=== PATIENT | female | born 1965 | race African-American/Black ===

== ENCOUNTER 2016-09-28 19:35 | Emergency (ER) | payer MEDICAID ==
[~2016-09-28] VITALS: Ht 154.9 cm; Wt 49.0 kg
[~2016-09-28 19:35] MED LIST: ALPR2TAB2 PO; CARB200T6 PO; CYCL5TAB PO; GABA-533 PO; GUAI-735 PO; METR375C3 PO; PHEN30TA42 PO; PRED1TAB PO; SERT25TA PO; TRAZ-129 PO
[2016-09-28] MEDS ORDERED: KETOROLAC 60MG/2ML VIAL IM ONE (22:30)
[2016-09-28 23:00] LABS: DIFFERENTIAL COMMENT 1; HEMATOCRIT. 38.4 % (36.0-48.0); HEMOGLOBIN. 13.5 g/dL (12.0-16.0); MEAN CORPUSCULAR HEMOGLOBIN 30.3 pg (28.0-32.0); MEAN CORPUSCULAR HGB CONC 35.2 g/dL (31.0-37.0); MEAN PLATELET VOLUME 7.1 fl (7.4-10.4); PLATELET 305 x1000/uL (130-400); RED BLOOD CELL COUNT 4.47 mill/uL (4.2-5.4); RED CELL DISTRIBUTION WIDTH 13.8 % (11.6-14.6); WHITE BLOOD COUNT 10.3 x1000/uL (4.5-11.0)
[2016-09-28 23:08] LABS: INR 1.1; PROTHROMBIN TIME 11.1 sec
[2016-09-28 23:14] LABS: ALANINE AMINOTRANSFERASE 17 IU/L (13-61); ALBUMIN 3.3 g/dL (3.4-5.0); ANION GAP 7; CALCIUM 8.6 mg/dL (8.5-10.1); CARBON DIOXIDE 27 mEq/L (21-32); CHLORIDE 103 mEq/L (98-107); INDEX HEMOLYSI 1 (1-3); INDEX ICTERIC 1 (1-4); INDEX LIPEMIC 1 (1-3); LIPASE 79 IU/L (73-393); UREA NITROGEN BLOOD 10 mg/dL (7-21); eGFR > 60 mL/min (>60)
[2016-09-29] MEDS ORDERED: ALBUTEROL (0.083%) 2.5MG/3ML NEB HHN ONE
[2016-09-29] MEDS ORDERED: PREDNISONE 20MG TABLET PO ONE (00:15)
[2016-09-29 03:22] VITALS: BP 111/65
[2016-09-29 05:24] LABS: PLATELET ESTIMATE NORMAL
== END 2016-09-29 04:28 | disposition home or self-care (01) ==
LOC: ER 19:36
DX: N12 Tubulo-interstitial nephritis, not specified as acute or chronic (principal); J44.9 Chronic obstructive pulmonary disease, unspecified; Z86.73 Personal history of transient ischemic attack (TIA), and cerebral infarction without residual deficits; F17.200 Nicotine dependence, unspecified, uncomplicated
CPT/HCPCS: 36415; 74176; 80053; 83690; 85025; 85610; 94644; 96372; 99285; J1885; J7512; J7611; Z7610; 80305; 81003

== ENCOUNTER 2017-01-01 18:42 | Emergency (ER) | payer MEDICAID | END 2017-01-01 20:14 | disposition left against medical advice (07) | LOC: ER 20:14 | DX: R06.02 Shortness of breath (principal); Z53.21 Procedure and treatment not carried out due to patient leaving prior to being seen by health care provider ==

== ENCOUNTER 2017-01-28 09:37 | Emergency (ER) | payer MEDICAID ==
[~2017-01-28] VITALS: Ht 154.9 cm; Wt 52.0 kg
[2017-01-28] MEDS ORDERED: KETOROLAC 60MG/2ML VIAL IM ONE (11:45)
[2017-01-28] MEDS ORDERED: DIAZEPAM 2 MG TABLET PO ONE ×2 (11:45→14:45)
[2017-01-28 13:25] LABS: BASOPHILS % 1.8 % (0.0-2.0); EOSINOPHILS % 6.1 % (0.0-5.0); HEMATOCRIT. 40.4 % (36.0-48.0); HEMOGLOBIN. 14.2 g/dL (12.0-16.0); LYMPHOCYTES % 24.7 % (20.0-50.0); MEAN CORPUSCULAR HEMOGLOBIN 30.2 pg (28.0-32.0); MEAN CORPUSCULAR VOLUME 86.2 fL (81.0-99.0); MEAN PLATELET VOLUME 7.6 fl (7.4-10.4); MONOCYTES % 6.7 % (2.0-8.0); NEUTROPHILS % 60.7 % (40.0-76.0); PLATELET 299 x1000/uL (130-400); RED BLOOD CELL COUNT 4.69 mill/uL (4.2-5.4); RED CELL DISTRIBUTION WIDTH 14.2 % (11.6-14.6)
[2017-01-28 13:37] LABS: CARBON DIOXIDE 25 mEq/L (21-32); CHLORIDE 107 mEq/L (98-107)
[2017-01-28 13:58] LABS: CLARITY URINE CLEAR (CLEAR); COLOR URINE DARK YELLOW (YELLOW); GLUCOSE URINE NEGATIVE (NEGATIVE); KETONES URINE TRACE (NEGATIVE); LEUKOCYTE ESTERASE URINE NEGATIVE (NEGATIVE); NITRITE URINE NEGATIVE (NEGATIVE); OCCULT BLOOD URINE NEGATIVE (NEGATIVE); PROTEIN URINE TRACE (NEGATIVE); SPECIFIC GRAVITY URINE 1.033 (1.005-1.030)
[2017-01-28 14:21] LABS: *AMPHETAMINES SCREEN URINE NEGATIVE (NEGATIVE); *BARBITURATES SCREEN URINE NEGATIVE (NEGATIVE); *BENZODIAZEPINES SCREEN URINE NEGATIVE (NEGATIVE); *COCAINE SCREEN URINE PRESUMTIVE POSITIVE (NEGATIVE); CANNABINOID URINE SCREEN PRESUMTIVE POSITIVE (NEGATIVE); METHADONE URINE SCREEN NEGATIVE (NEGATIVE); OPIATES URINE SCREEN NEGATIVE (NEGATIVE); PHENCYCLIDINE URINE SCREEN NEGATIVE (NEGATIVE)
[2017-01-28 16:48] VITALS: BP 123/86
== END 2017-01-28 16:40 | disposition left against medical advice (07) ==
LOC: ER 09:37
DX: M54.5 Low back pain (principal); G89.29 Other chronic pain; F17.210 Nicotine dependence, cigarettes, uncomplicated; R56.9 Unspecified convulsions; F12.20 Cannabis dependence, uncomplicated; J44.9 Chronic obstructive pulmonary disease, unspecified; Z71.6 Tobacco abuse counseling; Z86.73 Personal history of transient ischemic attack (TIA), and cerebral infarction without residual deficits
CPT/HCPCS: 36415; 80048; 80305; 81001; 85025; 96372; 99284; 99406; J1885; Z7610

== ENCOUNTER 2017-03-04 16:44 | Emergency (ER) | payer MEDICAID ==
[~2017-03-04] VITALS: Ht 157.5 cm; Wt 53.0 kg
[2017-03-04] MEDS ORDERED: IPRATROPIUM BROMIDE (0.02%) 0.5MG/2.5ML NEB HHN STA (17:55)
[2017-03-04] MEDS ORDERED: SODIUM CHLORIDE 0.9% 1,000 ML IV ONE (17:55)
[2017-03-04] MEDS ORDERED: ALBUTEROL (0.083%) 2.5MG/3ML NEB HHN STA (17:55)
[2017-03-04] MEDS ORDERED: METHYLPREDNISOLONE SOD SUCC 125 MG/2 ML VIAL IV STA (17:55)
[2017-03-04 18:37] LABS: BASOPHILS % 0.9 % (0.0-2.0); EOSINOPHILS % 6.3 % (0.0-5.0); HEMATOCRIT. 38.3 % (36.0-48.0); HEMOGLOBIN. 13.4 g/dL (12.0-16.0); LYMPHOCYTES % 37.6 % (20.0-50.0); MEAN CORPUSCULAR HEMOGLOBIN 29.9 pg (28.0-32.0); MEAN CORPUSCULAR VOLUME 85.6 fL (81.0-99.0); MEAN PLATELET VOLUME 7.5 fl (7.4-10.4); MONOCYTES % 10.6 % (2.0-8.0); NEUTROPHILS % 44.6 % (40.0-76.0); PLATELET 303 x1000/uL (130-400); RED BLOOD CELL COUNT 4.47 mill/uL (4.2-5.4); RED CELL DISTRIBUTION WIDTH 14.4 % (11.6-14.6)
[2017-03-04 18:38] LABS: CLARITY URINE TURBID (CLEAR); COLOR URINE YELLOW (YELLOW); GLUCOSE URINE NEGATIVE (NEGATIVE); KETONES URINE NEGATIVE (NEGATIVE); LEUKOCYTE ESTERASE URINE TRACE (NEGATIVE); NITRITE URINE NEGATIVE (NEGATIVE); OCCULT BLOOD URINE TRACE (NEGATIVE); PH URINE >=9.0 (4.5-8.0); PROTEIN URINE NEGATIVE (NEGATIVE); SPECIFIC GRAVITY URINE 1.024 (1.005-1.030)
[2017-03-04 18:41] LABS: PROTHROMBIN TIME 10.7 sec (9.4-11.6)
[2017-03-04 18:42] LABS: CARBON DIOXIDE 29 mEq/L (21-32); CHLORIDE 109 mEq/L (98-107)
[2017-03-04 18:48] LABS: *AMPHETAMINES SCREEN URINE NEGATIVE (NEGATIVE); *BARBITURATES SCREEN URINE NEGATIVE (NEGATIVE); *BENZODIAZEPINES SCREEN URINE NEGATIVE (NEGATIVE); *COCAINE SCREEN URINE PRESUMTIVE POSITIVE (NEGATIVE); CANNABINOID URINE SCREEN PRESUMTIVE POSITIVE (NEGATIVE); METHADONE URINE SCREEN NEGATIVE (NEGATIVE); OPIATES URINE SCREEN NEGATIVE (NEGATIVE); PHENCYCLIDINE URINE SCREEN NEGATIVE (NEGATIVE)
[2017-03-04 18:49] LABS: TROPONIN I < 0.02 ng/mL (0.00-0.04)
[2017-03-04 18:50] LABS: HCG SCREEN NEGATIVE
[2017-03-04 20:11] VITALS: BP 120/73
== END 2017-03-04 20:12 | disposition home or self-care (01) ==
LOC: ER 16:44 → CANBEDREQ 20:18
DX: F14.10 Cocaine abuse, uncomplicated (principal); J44.9 Chronic obstructive pulmonary disease, unspecified; F17.210 Nicotine dependence, cigarettes, uncomplicated; R56.9 Unspecified convulsions; Z86.73 Personal history of transient ischemic attack (TIA), and cerebral infarction without residual deficits
CPT/HCPCS: 36415; 71010; 80053; 80305; 81001; 82962; 83605; 83690; 83880; 84484; 84703; 85025; 85610; 87040; 93005; 94640; 96361; 96374; 99285; 99406; J2930; J7030; J7611; Z7610

== ENCOUNTER 2017-03-12 05:34 | Inpatient (IN) | payer MEDICAID ==
[~2017-03-12] VITALS: Ht 157.5 cm; Wt 52.4 kg
[~2017-03-12 05:34] MED LIST changes: -METR375C3 PO; +METR375C6 PO
[2017-03-12] MEDS ORDERED: SODIUM CHLORIDE 0.9% 1,000 ML IV ONE (06:19)
[2017-03-12] MEDS ORDERED: PREDNISONE 20MG TABLET PO STA (06:19)
[2017-03-12] MEDS ORDERED: IPRATROPIUM/ALBUTEROL 0.5-3(2.5)MG/3ML NEB HHN ONE (06:30)
[2017-03-12 06:57] LABS: BASOPHILS % 0.5 % (0.0-2.0); EOSINOPHILS % 3.9 % (0.0-5.0); HEMATOCRIT. 37.2 % (36.0-48.0); HEMOGLOBIN. 12.9 g/dL (12.0-16.0); LYMPHOCYTES % 16.2 % (20.0-50.0); MEAN CORPUSCULAR HEMOGLOBIN 29.8 pg (28.0-32.0); MEAN CORPUSCULAR VOLUME 85.8 fL (81.0-99.0); MEAN PLATELET VOLUME 7.4 fl (7.4-10.4); MONOCYTES % 8.8 % (2.0-8.0); NEUTROPHILS % 70.6 % (40.0-76.0); PLATELET 302 x1000/uL (130-400); RED BLOOD CELL COUNT 4.34 mill/uL (4.2-5.4); RED CELL DISTRIBUTION WIDTH 14.3 % (11.6-14.6)
[2017-03-12 06:59] LABS: D-DIMER 0.27 mg/L FEU (<0.50); PARTIAL THROMBOPLASTIN TIME 34.1 sec (23.4-31.0); PROTHROMBIN TIME 9.9 sec (9.4-11.6)
[2017-03-12 07:04] LABS: CARBON DIOXIDE 24 mEq/L (21-32); CHLORIDE 108 mEq/L (98-107); TROPONIN I < 0.02 ng/mL (0.00-0.04)
[2017-03-12 07:59] LABS: BG BASE EXCESS 1.6 mmol/L (-2.0-2.0); BG CARBOXYHEMOGLOBIN 1.8 % (0.5-1.5); BG DEOXYHEMOGLOBIN 8.3 % (0.0-5.0); BG FRACTION INSPIRED OXYGEN 21; BG HCO3 ACT 25.7 mmol/L (22.0-26.0); BG METHEMOGLOBIN 0.2 % (0.0-1.5); BG OXYGEN SATURATION 91.5 % (92.0-98.5); BG OXYHEMOGLOBIN 89.7 % (94.0-97.0); BG PCO2 38.8 mmHg (35.0-45.0); BG PH 7.439 (7.350-7.450); BG PO2 59.7 mmHg (75.0-100.0); BG SAMPLE SITE RIGHT BRACHIAL; BG TOTAL HEMOGLOBIN 14.1 g/dL (12.0-18.0); BG VENT MODE ROOM AIR
[2017-03-12 08:59] LABS: CLARITY URINE CLEAR (CLEAR); COLOR URINE YELLOW (YELLOW); GLUCOSE URINE NEGATIVE (NEGATIVE); KETONES URINE NEGATIVE (NEGATIVE); LEUKOCYTE ESTERASE URINE TRACE (NEGATIVE); NITRITE URINE NEGATIVE (NEGATIVE); OCCULT BLOOD URINE NEGATIVE (NEGATIVE); PROTEIN URINE NEGATIVE (NEGATIVE); SPECIFIC GRAVITY URINE 1.028 (1.005-1.030)
[2017-03-12] MEDS ORDERED: SODIUM CHLORIDE 0.9% 1,000 ML IV SCH (11:14)
[2017-03-12] MEDS ORDERED: CEFTRIAXONE 1 G PREMIX 50 ML IV ONE (11:15)
[2017-03-12 11:34] LABS: *AMPHETAMINES SCREEN URINE NEGATIVE (NEGATIVE); *BARBITURATES SCREEN URINE NEGATIVE (NEGATIVE); *BENZODIAZEPINES SCREEN URINE NEGATIVE (NEGATIVE); *COCAINE SCREEN URINE PRESUMTIVE POSITIVE (NEGATIVE); CANNABINOID URINE SCREEN PRESUMTIVE POSITIVE (NEGATIVE); METHADONE URINE SCREEN NEGATIVE (NEGATIVE); OPIATES URINE SCREEN NEGATIVE (NEGATIVE); PHENCYCLIDINE URINE SCREEN NEGATIVE (NEGATIVE)
[2017-03-12 12:00] VITALS: BP 115/82
[2017-03-12 12:36] VITALS: BP 118/85
[2017-03-12] MEDS ORDERED: MAGNESIUM/ALUMINUM HYDROXIDE/SIMETHICONE 30ML UDC PO PRN ×2 (13:15→18:15)
[2017-03-12] MEDS ORDERED: CLONIDINE 0.1MG TABLET PO PRN (13:15)
[2017-03-12] MEDS ORDERED: ONDANSETRON HCL 4MG/2ML VIAL IV PRN (13:15)
[2017-03-12] MEDS ORDERED: IPRATROPIUM/ALBUTEROL 0.5-3(2.5)MG/3ML NEB INH PRN (13:15)
[2017-03-12] MEDS ORDERED: GUAIFENESIN 200MG/10ML SUGAR FREE UDC PO PRN (13:15)
[2017-03-12] MEDS: ENOXAPARIN 40MG/0.4ML SYR SUBCUT SCH (13:15)
[2017-03-12] MEDS: SODIUM CHLORIDE 0.9% INJ 3ML FLUSH IVF SCH ×2 (15:00→21:35)
[2017-03-12] MEDS: IPRATROPIUM/ALBUTEROL 0.5-3(2.5)MG/3ML NEB HHN SCH ×3 (15:28→22:14)
[2017-03-12 16:00] VITALS: BP 124/67
[2017-03-12] MEDS: ACETAMINOPHEN 325MG TABLET PO PRN (17:01)
[2017-03-12] MEDS ORDERED: HYDR-519 PO (17:07)
[2017-03-12 20:00] VITALS: BP 128/74
[2017-03-12] MEDS: GUAIFENESIN 600MG ER TABLET PO SCH (21:30)
[2017-03-12] MEDS: METHYLPREDNISOLONE SOD SUCC 125 MG/2 ML VIAL IV SCH (21:30)
[2017-03-12] MEDS ORDERED: ZOLPIDEM TARTRATE 5MG TABLET PO PRN (22:00)
[2017-03-13] VITALS: BP 108/62
[2017-03-13] MEDS: IPRATROPIUM/ALBUTEROL 0.5-3(2.5)MG/3ML NEB HHN SCH ×2 (01:41→09:52)
[2017-03-13 04:00] VITALS: BP 120/71
[2017-03-13] MEDS: METHYLPREDNISOLONE SOD SUCC 125 MG/2 ML VIAL IV SCH (06:12)
[2017-03-13] MEDS: SODIUM CHLORIDE 0.9% INJ 3ML FLUSH IVF SCH (06:12)
[2017-03-13 08:00] VITALS: BP 111/62
[2017-03-13] MEDS: GUAIFENESIN 600MG ER TABLET PO SCH (08:04)
[2017-03-13] MEDS: ENOXAPARIN 40MG/0.4ML SYR SUBCUT SCH (08:05)
[2017-03-13] MEDS: ACETAMINOPHEN 325MG TABLET PO PRN (08:49)
[2017-03-13] MEDS ORDERED: AZITHROMYCIN 500 MG TABLET PO SCH (09:00)
== END 2017-03-13 11:30 | disposition left against medical advice (07) | DRG 140 ==
LOC: ER 08:26 → ENRESERV 10:13 → 5WST 11:17 → EDBEDREQ 11:18 → EDBEDREQTM 11:18
PROVIDERS: ADMIT Internal Medicine; ATTEND Internal Medicine
DX: J44.1 Chronic obstructive pulmonary disease with (acute) exacerbation (principal); J96.90 Respiratory failure, unspecified, unspecified whether with hypoxia or hypercapnia; J44.0 Chronic obstructive pulmonary disease with (acute) lower respiratory infection; E44.0 Moderate protein-calorie malnutrition; I10 Essential (primary) hypertension; F14.10 Cocaine abuse, uncomplicated; G40.909 Epilepsy, unspecified, not intractable, without status epilepticus; J20.9 Acute bronchitis, unspecified; Z86.73 Personal history of transient ischemic attack (TIA), and cerebral infarction without residual deficits; Z87.11 Personal history of peptic ulcer disease; Z87.891 Personal history of nicotine dependence; Z98.891 History of uterine scar from previous surgery; Z79.899 Other long term (current) drug therapy; Z68.21 Body mass index [BMI] 21.0-21.9, adult; Z82.49 Family history of ischemic heart disease and other diseases of the circulatory system
CPT/HCPCS: 36415; 36600; 71010; 80053; 80305; 81001; 82375; 82805; 83880; 84484; 85025; 85379; 85610; 85730; 87040; 87086; 93005; 94640; 94664; 99285; J0696; J1650; J2930; J7030; J7512; J7620

== ENCOUNTER 2017-05-15 20:14 | Emergency (ER) | payer MEDICAID ==
[~2017-05-15] VITALS: Ht 154.9 cm; Wt 47.0 kg
[~2017-05-15 20:14] MED LIST changes: +HYDR-519 PO
[2017-05-15 20:26] VITALS: BP 125/78
[2017-05-15] MEDS ORDERED: BACITRACIN ZINC OINT UDPKT TOP ONE (21:30)
[2017-05-15] MEDS ORDERED: KETOROLAC 30MG/ML VIAL IM ONE (21:30)
[2017-05-15] MEDS ORDERED: LIDOCAINE HCL 1% 20ML VIAL (Pyxis) INJ MC ONE (21:30)
== END 2017-05-15 23:58 | disposition home or self-care (01) ==
LOC: ER 22:50
DX: L02.512 Cutaneous abscess of left hand (principal); J44.9 Chronic obstructive pulmonary disease, unspecified; R56.9 Unspecified convulsions; F17.200 Nicotine dependence, unspecified, uncomplicated; F12.10 Cannabis abuse, uncomplicated; Z98.890 Other specified postprocedural states
CPT/HCPCS: 10060; 81025; 96372; 99283; J1885; J3490

== ENCOUNTER 2017-08-02 07:52 | Emergency (ER) | payer MEDICAID ==
[~2017-08-02] VITALS: Ht 154.9 cm; Wt 51.0 kg
[2017-08-02 08:00] VITALS: BP 138/76
[2017-08-02 08:20] LABS: CLARITY URINE CLEAR (CLEAR); COLOR URINE YELLOW (YELLOW); KETONES URINE NEGATIVE (NEGATIVE); LEUKOCYTE ESTERASE URINE NEGATIVE (NEGATIVE); NITRITE URINE NEGATIVE (NEGATIVE); OCCULT BLOOD URINE NEGATIVE (NEGATIVE); PH URINE >=9.0 (4.5-8.0); PROTEIN URINE NEGATIVE (NEGATIVE); SPECIFIC GRAVITY URINE 1.007 (1.005-1.030)
== END 2017-08-02 10:47 | disposition left against medical advice (07) ==
LOC: ER 08:33
DX: R10.2 Pelvic and perineal pain (principal); Z53.21 Procedure and treatment not carried out due to patient leaving prior to being seen by health care provider
CPT/HCPCS: 81003; 81025

== ENCOUNTER 2017-11-30 04:29 | Emergency (ER) | payer MEDICAID ==
[~2017-11-30] VITALS: Ht 157.5 cm; Wt 45.0 kg
[2017-11-30 04:41] VITALS: BP 152/90
== END 2017-11-30 05:00 | disposition left against medical advice (07) ==
LOC: ER 04:29
DX: Z53.21 Procedure and treatment not carried out due to patient leaving prior to being seen by health care provider (principal)

== ENCOUNTER 2018-06-10 11:48 | Emergency (ER) | payer MEDICAID ==
[~2018-06-10] VITALS: Ht 165.1 cm; Wt 59.0 kg
[~2018-06-10 11:48] MED LIST changes: -TRAZ-129 PO; +TRAZ-212 PO
[2018-06-10] MEDS ORDERED: KETOROLAC 30MG/ML VIAL IV STA (12:14)
[2018-06-10] MEDS ORDERED: SODIUM CHLORIDE 0.9% 1,000 ML IV ONE (12:14)
[2018-06-10 13:36] LABS: COLOR URINE YELLOW (YELLOW); KETONES URINE TRACE (NEGATIVE); LEUKOCYTE ESTERASE URINE NEGATIVE (NEGATIVE); NITRITE URINE POSITIVE (NEGATIVE); OCCULT BLOOD URINE NEGATIVE (NEGATIVE); PH URINE 6.5 (4.5-8.0); PROTEIN URINE NEGATIVE (NEGATIVE); SPECIFIC GRAVITY URINE 1.028 (1.005-1.030)
[2018-06-10 13:37] LABS: CLARITY URINE SL HAZY (CLEAR)
[2018-06-10 13:39] LABS: BASOPHILS % 0.7 % (0.0-2.0); EOSINOPHILS % 3.2 % (0.0-5.0); HEMATOCRIT. 41.1 % (36.0-48.0); HEMOGLOBIN. 14.6 g/dL (12.0-16.0); LYMPHOCYTES % 24.5 % (20.0-50.0); MEAN CORPUSCULAR VOLUME 87.4 fL (81.0-99.0); MEAN PLATELET VOLUME 7.5 fl (7.4-10.4); MONOCYTES % 7.1 % (2.0-8.0); NEUTROPHILS % 64.5 % (40.0-76.0); PLATELET 288 x1000/uL (130-400); RED BLOOD CELL COUNT 4.71 mill/uL (4.2-5.4); RED CELL DISTRIBUTION WIDTH 14.8 % (11.6-14.6)
[2018-06-10 13:45] LABS: CHLORIDE 109 mEq/L (98-107)
[2018-06-10 13:47] LABS: PARTIAL THROMBOPLASTIN TIME 33.4 sec (23.4-31.0)
[2018-06-10 13:49] LABS: ETHANOL BLOOD < 10 mg/dL
[2018-06-10 13:59] LABS: *AMPHETAMINES SCREEN URINE NEGATIVE (NEGATIVE); *BARBITURATES SCREEN URINE NEGATIVE (NEGATIVE); *BENZODIAZEPINES SCREEN URINE NEGATIVE (NEGATIVE); *COCAINE SCREEN URINE PRESUMTIVE POSITIVE (NEGATIVE); METHADONE URINE SCREEN NEGATIVE (NEGATIVE); OPIATES URINE SCREEN NEGATIVE (NEGATIVE)
[2018-06-10 14:00] LABS: CANNABINOID URINE SCREEN PRESUMTIVE POSITIVE (NEGATIVE); PHENCYCLIDINE URINE SCREEN NEGATIVE (NEGATIVE)
[2018-06-10] MEDS ORDERED: CEFTRIAXONE 1 G PREMIX 50 ML IV ONE (14:00)
[2018-06-10 14:03] LABS: CARBAMAZEPINE < 0.5 ug/mL (4-12); PHENOBARBITAL < 2.1 ug/mL (15.0-40.0)
[2018-06-10] MEDS ORDERED: CARBAMAZEPINE 200MG TABLET PO ONE (14:30)
[2018-06-10 14:49] VITALS: BP 117/63
== END 2018-06-10 15:30 | disposition home or self-care (01) ==
LOC: ER 12:57 → CANBEDREQ 16:51
DX: N30.00 Acute cystitis without hematuria (principal); F12.10 Cannabis abuse, uncomplicated; G40.909 Epilepsy, unspecified, not intractable, without status epilepticus; I10 Essential (primary) hypertension; F14.10 Cocaine abuse, uncomplicated; R94.31 Abnormal electrocardiogram [ECG] [EKG]
CPT/HCPCS: 36415; 71045; 74176; 80053; 80156; 80184; 80305; 81003; 83690; 83880; 84484; 85025; 85610; 85730; 93005; 96365; 96375; 99284; G0482; J0696; J1885; J7030

== ENCOUNTER 2018-12-29 11:47 | Emergency (ER) | payer MEDICAID ==
[~2018-12-29] VITALS: Ht 167.6 cm; Wt 50.0 kg
[~2018-12-29 11:47] MED LIST changes: -TRAZ-212 PO; +TRAZ-251 PO
[2018-12-29] MEDS ORDERED: CARBAMAZEPINE 100MG TABLET CHEW PO ONE (13:15)
[2018-12-29] MEDS ORDERED: SODIUM CHLORIDE 0.9% 1,000 ML IV ONE (13:15)
[2018-12-29 14:26] LABS: BASOPHILS % 0.9 % (0.0-2.0); HEMATOCRIT. 41.2 % (36.0-48.0); HEMOGLOBIN. 14.4 g/dL (12.0-16.0); LYMPHOCYTES % 31.8 % (20.0-50.0); MEAN CORPUSCULAR HEMOGLOBIN 30.3 pg (28.0-32.0); MEAN CORPUSCULAR VOLUME 86.7 fL (81.0-99.0); MEAN PLATELET VOLUME 7.3 fl (7.4-10.4); MONOCYTES % 6.9 % (2.0-8.0); NEUTROPHILS % 56.4 % (40.0-76.0); PLATELET 313 x1000/uL (130-400); RED BLOOD CELL COUNT 4.75 mill/uL (4.2-5.4); RED CELL DISTRIBUTION WIDTH 14.6 % (11.6-14.6)
[2018-12-29 14:30] LABS: CHLORIDE 106 mEq/L (98-107)
[2018-12-29 16:33] LABS: CLARITY URINE CLEAR (CLEAR); COLOR URINE YELLOW (YELLOW); KETONES URINE NEGATIVE (NEGATIVE); LEUKOCYTE ESTERASE URINE NEGATIVE (NEGATIVE); NITRITE URINE NEGATIVE (NEGATIVE); OCCULT BLOOD URINE NEGATIVE (NEGATIVE); PROTEIN URINE NEGATIVE (NEGATIVE); SPECIFIC GRAVITY URINE 1.021 (1.005-1.030)
[2018-12-29 16:47] VITALS: BP 113/55
[2018-12-29 16:54] LABS: *AMPHETAMINES SCREEN URINE NEGATIVE (NEGATIVE); *BARBITURATES SCREEN URINE NEGATIVE (NEGATIVE); *BENZODIAZEPINES SCREEN URINE NEGATIVE (NEGATIVE); *COCAINE SCREEN URINE PRESUMTIVE POSITIVE (NEGATIVE); CANNABINOID URINE SCREEN PRESUMTIVE POSITIVE (NEGATIVE); METHADONE URINE SCREEN NEGATIVE (NEGATIVE); OPIATES URINE SCREEN NEGATIVE (NEGATIVE)
[2018-12-29 16:56] LABS: PHENCYCLIDINE URINE SCREEN NEGATIVE (NEGATIVE)
[2018-12-29] MEDS ORDERED: CARBAMAZEPINE 100MG TABLET CHEW PO SCH (17:00)
== END 2018-12-29 17:19 | disposition home or self-care (01) ==
LOC: ER 12:28
DX: G40.909 Epilepsy, unspecified, not intractable, without status epilepticus (principal); F14.10 Cocaine abuse, uncomplicated; F12.10 Cannabis abuse, uncomplicated; Z91.14 Patient's other noncompliance with medication regimen
CPT/HCPCS: 36415; 80048; 80305; 81003; 81025; 85025; 96360; 99283; J7030; Z7610

== ENCOUNTER 2019-03-23 12:34 | Emergency (ER) | payer MEDICAID ==
[~2019-03-23] VITALS: Ht 162.6 cm; Wt 59.0 kg
[2019-03-23] MEDS ORDERED: ONDANSETRON HCL 4MG/2ML INJ IV STA (14:24)
[2019-03-23] MEDS ORDERED: KETOROLAC 30MG/ML VIAL IV STA (14:24)
[2019-03-23] MEDS ORDERED: SODIUM CHLORIDE 0.9% 1,000 ML IV ONE (14:24)
[2019-03-23 15:11] LABS: EOSINOPHILS % 2.9 % (0.0-5.0); HEMATOCRIT. 42.2 % (36.0-48.0); HEMOGLOBIN. 14.7 g/dL (12.0-16.0); LYMPHOCYTES % 19.7 % (20.0-50.0); MEAN PLATELET VOLUME 7.4 fl (7.4-10.4); MONOCYTES % 4.8 % (2.0-8.0); NEUTROPHILS % 71.6 % (40.0-76.0); PLATELET 295 x1000/uL (130-400); RED BLOOD CELL COUNT 4.74 mill/uL (4.2-5.4); RED CELL DISTRIBUTION WIDTH 14.3 % (11.6-14.6)
[2019-03-23 15:13] LABS: CHLORIDE 109 mEq/L (98-107)
[2019-03-23 15:16] LABS: CLARITY URINE CLEAR (CLEAR); COLOR URINE YELLOW (YELLOW); KETONES URINE NEGATIVE (NEGATIVE); LEUKOCYTE ESTERASE URINE TRACE (NEGATIVE); NITRITE URINE POSITIVE (NEGATIVE); OCCULT BLOOD URINE TRACE (NEGATIVE); PROTEIN URINE NEGATIVE (NEGATIVE); SPECIFIC GRAVITY URINE 1.017 (1.005-1.030)
[2019-03-23 15:17] LABS: ETHANOL BLOOD < 10 mg/dL; HCG SCREEN NEGATIVE
[2019-03-23 15:34] LABS: *BARBITURATES SCREEN URINE NEGATIVE (NEGATIVE)
[2019-03-23 15:35] LABS: *AMPHETAMINES SCREEN URINE NEGATIVE (NEGATIVE); *BENZODIAZEPINES SCREEN URINE NEGATIVE (NEGATIVE); *COCAINE SCREEN URINE PRESUMTIVE POSITIVE (NEGATIVE); CANNABINOID URINE SCREEN NEGATIVE (NEGATIVE); METHADONE URINE SCREEN NEGATIVE (NEGATIVE); OPIATES URINE SCREEN NEGATIVE (NEGATIVE); PHENCYCLIDINE URINE SCREEN NEGATIVE (NEGATIVE)
[2019-03-23 16:37] VITALS: BP 148/89
== END 2019-03-23 16:38 | disposition home or self-care (01) ==
LOC: ER 12:34
DX: F14.10 Cocaine abuse, uncomplicated (principal); R00.1 Bradycardia, unspecified; J45.909 Unspecified asthma, uncomplicated; R42 Dizziness and giddiness; R11.2 Nausea with vomiting, unspecified; M54.6 Pain in thoracic spine; F12.10 Cannabis abuse, uncomplicated; F17.200 Nicotine dependence, unspecified, uncomplicated; Z98.890 Other specified postprocedural states; Z79.899 Other long term (current) drug therapy
CPT/HCPCS: 36415; 71045; 80053; 80305; 80320; 81003; 81025; 83690; 84484; 84703; 85025; 85610; 93005; 96361; 96374; 96375; 99284; J1885; J2405; J7030; G0480

== ENCOUNTER 2019-06-23 22:37 | Emergency (ER) | payer MEDICAID ==
[~2019-06-23] VITALS: Ht 154.9 cm; Wt 48.0 kg
[2019-06-24] MEDS ORDERED: KETOROLAC 60MG/2ML VIAL IM STA (02:13)
[2019-06-24] MEDS ORDERED: AZITHROMYCIN 500 MG TABLET PO ONE (02:15)
[2019-06-24] MEDS ORDERED: LIDOCAINE HCL/PF 1% 10 MG/ML 5ML VIAL IJ ONE (02:15)
[2019-06-24] MEDS ORDERED: CEFTRIAXONE SODIUM 250 MG/VIAL IM ONE (02:15)
[2019-06-24 02:31] LABS: CLARITY URINE CLEAR (CLEAR); COLOR URINE YELLOW (YELLOW); KETONES URINE NEGATIVE (NEGATIVE); LEUKOCYTE ESTERASE URINE NEGATIVE (NEGATIVE); NITRITE URINE NEGATIVE (NEGATIVE); OCCULT BLOOD URINE NEGATIVE (NEGATIVE); PROTEIN URINE NEGATIVE (NEGATIVE); SPECIFIC GRAVITY URINE 1.023 (1.005-1.030); UROBILINOGEN URINE 0.2 E.U./dL (0.2-1.0)
[2019-06-24 03:05] VITALS: BP 131/74
== END 2019-06-24 03:20 | disposition home or self-care (01) ==
LOC: ER 22:37
DX: M54.42 Lumbago with sciatica, left side (principal); Z20.2 Contact with and (suspected) exposure to infections with a predominantly sexual mode of transmission; G40.909 Epilepsy, unspecified, not intractable, without status epilepticus; J44.9 Chronic obstructive pulmonary disease, unspecified; F14.10 Cocaine abuse, uncomplicated; F17.210 Nicotine dependence, cigarettes, uncomplicated; F12.10 Cannabis abuse, uncomplicated; Z98.890 Other specified postprocedural states
CPT/HCPCS: 81003; 81025; 96372; 99283; J0696; J1885; J3490

== ENCOUNTER 2019-12-27 22:54 | Emergency (ER) | payer MEDICAID ==
[~2019-12-27] VITALS: Ht 152.4 cm; Wt 55.0 kg
[2019-12-28 00:20] LABS: BASOPHILS % 0.9 % (0.0-2.0); EOSINOPHILS % 2.8 % (0.0-5.0); HEMATOCRIT. 41.3 % (36.0-48.0); HEMOGLOBIN. 14.6 g/dL (12.0-16.0); MEAN CORPUSCULAR HEMOGLOBIN 30.9 pg (28.0-32.0); MEAN CORPUSCULAR VOLUME 87.3 fL (81.0-99.0); MEAN PLATELET VOLUME 7.4 fl (7.4-10.4); MONOCYTES % 6.3 % (2.0-8.0); PLATELET 308 x1000/uL (130-400); RED BLOOD CELL COUNT 4.73 mill/uL (4.2-5.4); RED CELL DISTRIBUTION WIDTH 15.6 % (11.6-14.6)
[2019-12-28 00:21] LABS: CHLORIDE 110 mEq/L (98-107)
[2019-12-28 04:10] VITALS: BP 130/72
== END 2019-12-28 04:38 | disposition home or self-care (01) ==
LOC: ER 22:54
DX: R10.30 Lower abdominal pain, unspecified (principal); R11.2 Nausea with vomiting, unspecified; F14.10 Cocaine abuse, uncomplicated; F12.10 Cannabis abuse, uncomplicated; J44.9 Chronic obstructive pulmonary disease, unspecified; Z98.890 Other specified postprocedural states
CPT/HCPCS: 36415; 80053; 85025; 99283; 99285

== ENCOUNTER 2020-02-08 11:22 | Emergency (ER) | payer MEDICAID ==
[~2020-02-08] VITALS: Ht 165.1 cm; Wt 63.0 kg
[2020-02-08 12:01] LABS: EOSINOPHILS % 4.1 % (0.0-5.0); HEMATOCRIT. 41.9 % (36.0-48.0); HEMOGLOBIN. 14.8 g/dL (12.0-16.0); LYMPHOCYTES % 27.3 % (20.0-50.0); MEAN CORPUSCULAR HEMOGLOBIN 30.3 pg (28.0-32.0); MEAN CORPUSCULAR VOLUME 85.8 fL (81.0-99.0); MEAN PLATELET VOLUME 7.5 fl (7.4-10.4); MONOCYTES % 8.4 % (2.0-8.0); NEUTROPHILS % 59.2 % (40.0-76.0); PLATELET 301 x1000/uL (130-400); RED BLOOD CELL COUNT 4.88 mill/uL (4.2-5.4); RED CELL DISTRIBUTION WIDTH 14.9 % (11.6-14.6)
[2020-02-08 12:07] LABS: CHLORIDE 109 mEq/L (98-107)
[2020-02-08 12:22] LABS: B-HCG QUANTITATIVE < 1 mIU/mL (<3)
[2020-02-08 12:24] LABS: CLARITY URINE CLOUDY (CLEAR); COLOR URINE RED (YELLOW); KETONES URINE NEGATIVE (NEGATIVE); LEUKOCYTE ESTERASE URINE 2+ (NEGATIVE); NITRITE URINE POSITIVE (NEGATIVE); OCCULT BLOOD URINE 3+ (NEGATIVE); PH URINE >=9.0 (4.5-8.0); PROTEIN URINE 3+ (NEGATIVE); SPECIFIC GRAVITY URINE 1.018 (1.005-1.030); UROBILINOGEN URINE 0.2 E.U./dL (0.2-1.0)
[2020-02-08] MEDS ORDERED: CEFTRIAXONE 1 G PREMIX 50 ML IV ONE (13:00)
[2020-02-08] MEDS ORDERED: ONDANSETRON HCL 4MG/2ML INJ IV ONE (13:45)
[2020-02-08 14:45] VITALS: BP 162/83
== END 2020-02-08 14:49 | disposition home or self-care (01) ==
LOC: ER 11:22
DX: D25.9 Leiomyoma of uterus, unspecified (principal); N39.0 Urinary tract infection, site not specified; R11.2 Nausea with vomiting, unspecified; J44.9 Chronic obstructive pulmonary disease, unspecified; Z79.899 Other long term (current) drug therapy; Z98.890 Other specified postprocedural states
CPT/HCPCS: 36415; 76830; 76856; 80053; 81003; 81025; 84702; 85025; 86850; 86900; 86901; 87086; 93005; 96365; 99285; J0696

== ENCOUNTER 2021-07-04 10:58 | Inpatient (IN) | payer MEDICAID ==
[~2021-07-04] VITALS: Ht 162.6 cm; Wt 68.9 kg
[~2021-07-04 10:58] MED LIST changes: +AMLO10TA4 MT; +KEPP500 MT; -METR375C6 PO; +METR375C7 PO; -PHEN30TA42 PO; +PHEN30TA50 PO
[2021-07-04] MEDS ORDERED: ALBUTEROL (0.083%) 2.5MG/3ML NEB HHN STA (12:01)
[2021-07-04] MEDS ORDERED: MORPHINE SULFATE 4 MG/ML CPJ (NOT FOR IM USE) IV STA (12:01)
[2021-07-04] MEDS ORDERED: METHYLPREDNISOLONE SOD SUCC 125 MG/2 ML VIAL IV STA (12:01)
[2021-07-04] MEDS ORDERED: IPRATROPIUM BROMIDE (0.02%) 0.5MG/2.5ML NEB HHN STA (12:01)
[2021-07-04] MEDS ORDERED: CARBAMAZEPINE 100MG TABLET CHEW PO ONE (12:15)
[2021-07-04] MEDS ORDERED: SODIUM CHLORIDE 0.9% 1000ML BAG (SEPSIS BOLUS) IV ONE (12:15)
[2021-07-04 13:23] LABS: HEMATOCRIT. 42.1 % (36.0-48.0); HEMOGLOBIN. 14.5 g/dL (12.0-16.0); MEAN CORPUSCULAR HEMOGLOBIN 29.5 pg (28.0-32.0); MEAN PLATELET VOLUME 7.6 fl (7.4-10.4); PLATELET 290 x1000/uL (130-400); RED CELL DISTRIBUTION WIDTH 14.3 % (11.6-14.6)
[2021-07-04 13:31] LABS: CHLORIDE 110 mEq/L (98-107)
[2021-07-04 13:34] LABS: ETHANOL BLOOD < 10 mg/dL
[2021-07-04 13:39] LABS: HCG SCREEN NEGATIVE
[2021-07-04 13:42] LABS: PLATELET ESTIMATE NORMAL
[2021-07-04] MEDS ORDERED: ACETAMINOPHEN 325MG TABLET PO ONE (14:00)
[2021-07-04 17:04] LABS: CLARITY URINE CLEAR (CLEAR); COLOR URINE YELLOW (YELLOW); KETONES URINE TRACE (NEGATIVE); LEUKOCYTE ESTERASE URINE NEGATIVE (NEGATIVE); NITRITE URINE POSITIVE (NEGATIVE); OCCULT BLOOD URINE NEGATIVE (NEGATIVE); PH URINE 7.5 (4.5-8.0); PROTEIN URINE NEGATIVE (NEGATIVE); SPECIFIC GRAVITY URINE 1.015 (1.005-1.030)
[2021-07-04] MEDS ORDERED: CEFTRIAXONE 1 G PREMIX 50 ML IV ONE (17:15)
[2021-07-04 17:52] LABS: *AMPHETAMINES SCREEN URINE NEGATIVE (NEGATIVE); *BARBITURATES SCREEN URINE NEGATIVE (NEGATIVE); *BENZODIAZEPINES SCREEN URINE NEGATIVE (NEGATIVE); *COCAINE SCREEN URINE PRESUMTIVE POSITIVE (NEGATIVE); CANNABINOID URINE SCREEN PRESUMTIVE POSITIVE (NEGATIVE); PHENCYCLIDINE URINE SCREEN NEGATIVE (NEGATIVE)
[2021-07-04 17:53] LABS: METHADONE URINE SCREEN NEGATIVE (NEGATIVE); OPIATES URINE SCREEN PRESUMTIVE POSITIVE (NEGATIVE)
[2021-07-04] MEDS ORDERED: ALBUTEROL (0.083%) 2.5MG/3ML NEB HHN SCH (20:30)
[2021-07-04] MEDS ORDERED: IPRATROPIUM BROMIDE (0.02%) 0.5MG/2.5ML NEB HHN NR (20:30)
[2021-07-05] VITALS (7 sets, daily range): BP systolic 106–134; BP diastolic 53–72
[2021-07-05] MEDS ORDERED: ALBUTEROL 6.7GM HFA INHALER ORI PRN (01:00)
[2021-07-05] MEDS ORDERED: ACETAMINOPHEN 325MG TABLET PO PRN (01:00)
[2021-07-05] MEDS: GABAPENTIN 300MG CAPSULE PO SCH ×3 (06:54→20:58)
[2021-07-05 07:27] LABS: HEMATOCRIT. 33.4 % (36.0-48.0); HEMOGLOBIN. 11.9 g/dL (12.0-16.0); MEAN CORPUSCULAR HEMOGLOBIN 30.2 pg (28.0-32.0); MEAN CORPUSCULAR VOLUME 84.7 fL (81.0-99.0); MEAN PLATELET VOLUME 7.6 fl (7.4-10.4); PLATELET 241 x1000/uL (130-400); RED BLOOD CELL COUNT 3.94 mill/uL (4.2-5.4); RED CELL DISTRIBUTION WIDTH 14.3 % (11.6-14.6)
[2021-07-05 07:34] LABS: CHLORIDE 115 mEq/L (98-107)
[2021-07-05] MEDS: AZITHROMYCIN 500 MG in DEXT 5% WATER 250 ML IV SCH (08:41)
[2021-07-05] MEDS: PHENOBARBITAL 30 MG TABLET PO SCH (08:42)
[2021-07-05] MEDS: DEXAMETHASONE 4MG/ML 1ML VIAL IV SCH (08:42)
[2021-07-05] MEDS: SERTRALINE HCL 25MG TABLET PO SCH (08:42)
[2021-07-05] MEDS: AMLODIPINE 10MG TABLET PO SCH (08:43)
[2021-07-05] MEDS: LEVETIRACETAM 500MG TABLET PO SCH ×2 (08:43→20:58)
[2021-07-05] MEDS: CEFTRIAXONE 1,000 MG in DEXTROSE 5% WATER 50 ML IV SCH (08:43)
[2021-07-05] MEDS: CARBAMAZEPINE 200MG TABLET PO SCH ×3 (08:44→20:58)
[2021-07-05] MEDS: ENOXAPARIN 40MG/0.4ML SYR SUBCUT SCH (08:45)
[2021-07-05] MEDS ORDERED: CEFTRIAXONE 1 G PREMIX 50 ML IV SCH (09:00)
[2021-07-05 18:45] LABS: PLATELET ESTIMATE NORMAL
[2021-07-05 19:58] LABS: C REACTIVE PROTEIN QUANT 4.7 mg/L (0.0-3.0)
[2021-07-05] MEDS ORDERED: TRAZODONE HCL 50MG TABLET PO SCH (21:00)
[2021-07-06 00:48] VITALS: BP 125/71
[2021-07-06 04:00] VITALS: BP 126/84
[2021-07-06] MEDS: GABAPENTIN 300MG CAPSULE PO SCH ×2 (06:24→14:37)
[2021-07-06] MEDS: CEFTRIAXONE 1,000 MG in DEXTROSE 5% WATER 50 ML IV SCH (09:12)
[2021-07-06] MEDS: AMLODIPINE 10MG TABLET PO SCH (09:13)
[2021-07-06] MEDS: AZITHROMYCIN 500 MG in DEXT 5% WATER 250 ML IV SCH (09:13)
[2021-07-06] MEDS: DEXAMETHASONE 4MG/ML 1ML VIAL IV SCH (09:13)
[2021-07-06] MEDS: ENOXAPARIN 40MG/0.4ML SYR SUBCUT SCH (09:13)
[2021-07-06] MEDS: PHENOBARBITAL 30 MG TABLET PO SCH (09:14)
[2021-07-06] MEDS: CARBAMAZEPINE 200MG TABLET PO SCH (09:14)
[2021-07-06] MEDS: LEVETIRACETAM 500MG TABLET PO SCH (09:14)
[2021-07-06] MEDS: SERTRALINE HCL 25MG TABLET PO SCH (09:14)
[2021-07-06 12:00] VITALS: BP 118/69
[2021-07-06 14:56] VITALS: BP 124/73
== END 2021-07-06 15:40 | disposition home or self-care (01) | DRG 720 ==
LOC: ER 10:58 → EDBEDREQ 12:07 → EDBEDREQTM 15:58 → EDBEDREQ 15:58 → 7WST 17:18 → EDBEDREQTM 17:22 → EDBEDREQ 17:22 → ENRESERV 20:43
PROVIDERS: ADMIT Internal Medicine; ATTEND Internal Medicine
DX: A41.9 Sepsis, unspecified organism (principal); U07.1 COVID-19; E87.8 Other disorders of electrolyte and fluid balance, not elsewhere classified; J44.1 Chronic obstructive pulmonary disease with (acute) exacerbation; E87.6 Hypokalemia; F12.90 Cannabis use, unspecified, uncomplicated; F14.90 Cocaine use, unspecified, uncomplicated; G40.909 Epilepsy, unspecified, not intractable, without status epilepticus; N39.0 Urinary tract infection, site not specified; I10 Essential (primary) hypertension; B96.20 Unspecified Escherichia coli [E. coli] as the cause of diseases classified elsewhere; F17.210 Nicotine dependence, cigarettes, uncomplicated; Z82.49 Family history of ischemic heart disease and other diseases of the circulatory system; Z91.14 Patient's other noncompliance with medication regimen; Z98.891 History of uterine scar from previous surgery; Z79.899 Other long term (current) drug therapy; Z71.51 Drug abuse counseling and surveillance of drug abuser
CPT/HCPCS: 36415; 71045; 80053; 80305; 80320; 81003; 82728; 83605; 83615; 83880; 84145; 84484; 84703; 85025; 86140; 87077; 87186; 87426; 87804; 93005; 94644; 99285; J0456; J0696; J1100; J1650; J2270; J2930; J7030; J7040; J7060; U0003; U0005; G0480

== ENCOUNTER 2023-03-11 22:29 | Emergency (ER) | payer MEDICAID ==
[~2023-03-11] VITALS: Ht 154.9 cm; Wt 56.0 kg
[2023-03-11 22:45] VITALS: BP 130/77; RESP 18; TEMP 98.8; O2SAT 99
[2023-03-11 22:56] VITALS: PULSE 80
== END 2023-03-11 23:49 | disposition left against medical advice (07) ==
LOC: ER 22:46
DX: Z53.21 Procedure and treatment not carried out due to patient leaving prior to being seen by health care provider (principal)
CPT/HCPCS: 99281

== ENCOUNTER 2023-08-06 06:07 | Emergency (ER) | payer MEDICAID ==
[~2023-08-06] VITALS: Ht 162.6 cm; Wt 48.0 kg
[~2023-08-06 06:07] MED LIST changes: -ALPR2TAB2 PO; -CYCL5TAB PO; -GABA-533 PO; +GABA-534 PO; -GUAI-735 PO; +HYDR-4001 MT; -HYDR-519 PO; -METR375C7 PO; -PRED1TAB PO
[2023-08-06 06:12] VITALS: BP 119/64; PULSE 74; RESP 16; O2SAT 98
[2023-08-06] MEDS ORDERED: ACETAMINOPHEN 325MG TABLET PO ONE (06:30)
[2023-08-06 07:12] VITALS: TEMP 98.1
== END 2023-08-06 08:10 | disposition home or self-care (01) ==
LOC: ER 06:07
DX: S09.90XA Unspecified injury of head, initial encounter (principal); G89.11 Acute pain due to trauma; F14.10 Cocaine abuse, uncomplicated; I10 Essential (primary) hypertension; J44.1 Chronic obstructive pulmonary disease with (acute) exacerbation; Z98.890 Other specified postprocedural states; Z86.73 Personal history of transient ischemic attack (TIA), and cerebral infarction without residual deficits; W20.8XXA Other cause of strike by thrown, projected or falling object, initial encounter; Y93.89 Activity, other specified; Y92.89 Other specified places as the place of occurrence of the external cause; Y99.8 Other external cause status
CPT/HCPCS: 99284

== ENCOUNTER 2025-01-21 11:40 | Emergency (ER) | payer MEDICAID ==
[~2025-01-21] VITALS: Ht 154.9 cm; Wt 58.0 kg
[~2025-01-21 11:40] MED LIST changes: +AMLO-905 MT; -AMLO10TA4 MT
[2025-01-21 11:54] VITALS: O2SAT 98
[2025-01-21 13:26] LABS: BASOPHILS % 1.0 % (0.0-2.0); EOSINOPHILS % 3.3 % (0.0-5.0); HEMATOCRIT. 44.3 % (36.0-48.0); HEMOGLOBIN. 14.8 g/dL (12.0-16.0); LYMPHOCYTES % 30.4 % (20.0-50.0); MEAN PLATELET VOLUME 7.6 fl (7.4-10.4); MONOCYTES % 7.4 % (2.0-8.0); NEUTROPHILS % 57.9 % (40.0-76.0); PLATELET 284 x1000/uL (130-400); RED BLOOD CELL COUNT 5.09 mill/uL (4.2-5.4); RED CELL DISTRIBUTION WIDTH 15.6 % (11.6-14.6)
[2025-01-21 13:31] LABS: CREATININE 0.8 mg/dL (0.6-1.0); UREA NITROGEN BLOOD 12 mg/dL (9-23)
[2025-01-21 13:32] LABS: TROPONIN I HIGH SENSITIVITY < 4 ng/L (3.0-34)
[2025-01-21] MEDS: LIDOCAINE 5% PATCH TOP SCH (13:32)
[2025-01-21] MEDS: ACETAMINOPHEN 500MG TABLET PO ONE (13:32)
[2025-01-21 13:33] LABS: ASPARTATE AMINOTRANSFERASE 14 IU/L (<34); BILIRUBIN DIRECT 0.2 mg/dL (<=3.0)
[2025-01-21 13:34] LABS: BILIRUBIN TOTAL 0.6 mg/dL (0.1-1.0); PROTEIN TOTAL 7.0 g/dL (6.0-8.3)
[2025-01-21 15:47] LABS: CLARITY URINE CLEAR (CLEAR); COLOR URINE YELLOW (YELLOW); GLUCOSE URINE NEGATIVE (NEGATIVE); KETONES URINE NEGATIVE (NEGATIVE); LEUKOCYTE ESTERASE URINE NEGATIVE (NEGATIVE); NITRITE URINE NEGATIVE (NEGATIVE); OCCULT BLOOD URINE NEGATIVE (NEGATIVE); PH URINE 8.0 (4.5-8.0); PROTEIN URINE NEGATIVE (NEGATIVE); SPECIFIC GRAVITY URINE 1.018 (1.005-1.030); UROBILINOGEN URINE 0.2 E.U./dL (0.2-1.0)
[2025-01-21 16:08] VITALS: BP 143/65; PULSE 60; RESP 15; TEMP 36.9; O2SAT 98
[2025-01-21] MEDS ORDERED: TAMS-54 MT (16:15)
[2025-01-21] MEDS ORDERED: ACET-2708 MT (16:15)
== END 2025-01-21 16:37 | disposition home or self-care (01) ==
LOC: ER 11:40
DX: N20.0 Calculus of kidney (principal); I10 Essential (primary) hypertension; J44.89 Other specified chronic obstructive pulmonary disease; F14.90 Cocaine use, unspecified, uncomplicated; Z79.899 Other long term (current) drug therapy; Z86.73 Personal history of transient ischemic attack (TIA), and cerebral infarction without residual deficits; Z98.890 Other specified postprocedural states
CPT/HCPCS: 36415; 74176; 80048; 80076; 81003; 84484; 85025; 99284